=== PATIENT | male | born 1980 | race Caucasian/White ===

== ENCOUNTER 2017-04-24 06:11 | Emergency (ER) | payer OTHER ==
[~2017-04-24] VITALS: Ht 193 cm; Wt 97.5 kg
[2017-04-24] MEDS ORDERED: TETANUS, DIPHTHERIA, PERTUSSIS VAC/PF 0.5ML (>7YR OLD) IM ONE (07:30)
[2017-04-24] MEDS ORDERED: BACITRACIN ZINC OINT UDPKT TOP ONE (07:30)
[2017-04-24] MEDS ORDERED: LIDOCAINE HCL 1% 20ML VIAL (Pyxis) INJ MC ONE (07:30)
[2017-04-24 09:00] VITALS: BP 115/75
== END 2017-04-24 09:24 | disposition home or self-care (01) ==
LOC: ER 06:11
DX: S61.210A Laceration without foreign body of right index finger without damage to nail, initial encounter (principal); W25.XXXA Contact with sharp glass, initial encounter; Y93.89 Activity, other specified; Y92.69 Other specified industrial and construction area as the place of occurrence of the external cause; Y99.0 Civilian activity done for income or pay; R03.0 Elevated blood-pressure reading, without diagnosis of hypertension; Z23 Encounter for immunization; Z98.890 Other specified postprocedural states
CPT/HCPCS: 12001; 90471; 90715; 99283; J3490

== ENCOUNTER 2018-06-14 12:33 | Emergency (ER) | payer BC, OTHER ==
[~2018-06-14] VITALS: Ht 185.4 cm; Wt 84.0 kg
[2018-06-14 12:41] VITALS: BP 120/76
== END 2018-06-14 13:46 | disposition home or self-care (01) ==
LOC: ER 12:33
DX: H10.9 Unspecified conjunctivitis (principal)
CPT/HCPCS: 99283